=== PATIENT | female | born 1930 | race Caucasian/White ===

== ENCOUNTER 2018-08-10 11:04 | Inpatient (IN) | payer MEDICARE, MEDICAID ==
[~2018-08-10] VITALS: Ht 142.2 cm; Wt 51.7 kg
[2018-08-10] MEDS ORDERED: DIVA125C2 PO (11:36)
[2018-08-10] MEDS ORDERED: BLOO-668 IN (11:36)
[2018-08-10] MEDS ORDERED: DOCU-141 PO (11:36)
[2018-08-10] MEDS ORDERED: MEMA10TA PO (11:36)
[2018-08-10] MEDS ORDERED: DONE10TA11 PO (11:36)
[2018-08-10] MEDS ORDERED: METF-440 PO (11:36)
[2018-08-10] MEDS ORDERED: ACET-868 PO (11:36)
[2018-08-10 12:58] LABS: BASOPHILS # (AUTO) 0.1 /CMM (0.0-0.2); BASOPHILS % (AUTO) 2.2 % (0.0-2.0); EOSINOPHILS % (AUTO) 1.5 % (0.0-6.0); HEMATOCRIT 37 % (33-45); HEMOGLOBIN 12.3 g/dL (11.5-14.8); LYMPHOCYTES % (AUTO) 29.6 % (20.0-44.0); MEAN CORPUSCULAR HGB CONC 34 g/dl (31.0-36.0); MEAN CORPUSCULAR VOLUME 97 fL (82-100); MONOCYTES # (AUTO) 0.6 /CMM (0.1-1.30); MONOCYTES % (AUTO) 8.3 % (2.0-12.0); NEUTROPHILS # (AUTO) 3.9 /CMM (1.8-8.9); NEUTROPHILS % (AUTO) 58.4 % (43.0-81.0); PLATELET COUNT (AUTO) 203 /CMM (150-450); RED BLOOD CELL COUNT(AUTO) 3.77 MIL/uL (4.0-5.2); WHITE BLOOD COUNT (AUTO) 6.7 K/uL (4.3-11.0)
[2018-08-10] MEDS ORDERED: IV NS 0.9% 500 ML BAG IV ONE (13:00)
[2018-08-10 13:27] LABS: APPEARANCE,URINE Clear (CLEAR); BILIRUBIN,URINE Negative (NEGATIVE); BLOOD, URINE Negative Ery/uL (NEGATIVE); KETONES,URINE 15 (NEGATIVE); LEUKOCYTE ESTERASE ,URINE Negative (NEGATIVE); NITRITE, URINE Negative (NEGATIVE); PH,URINE 6.5 (5.0-8.0); PROTEIN,URINE Negative (NEGATIVE); UGLUCOSE Negative (NEGATIVE)
[2018-08-10 13:28] LABS: COLOR,URINE Dark Yellow (YELLOW)
[2018-08-10 13:33] LABS: BACTERIA,URINE None seen /HPF (None Seen); SQUAMOUS EPITHELIAL CELL,UR Few /HPF (None Seen)
[2018-08-10 13:38] LABS: ALANINE AMINOTRANSFERASE 19 U/L (12-78); ALBUMIN 3.6 g/dL (3.4-5.0); ALKALINE PHOSPHATASE 55 U/L (46-116); ASPARTATE AMINOTRANSFERASE 16 U/L (15-37); BILIRUBIN,DIRECT 0.1 mg/dL (0.0-0.2); BILIRUBIN,TOTAL 0.2 mg/dL (0.2-1.0); CALCIUM, SERUM 9.2 mg/dL (8.5-10.1); CARBON DIOXIDE 28 mmol/L (21-32); CHLORIDE 103 mmol/L (98-107); CREATININE 0.7 mg/dL (0.6-1.3); GLUCOSE 132 mg/dL (74-106); POTASSIUM 3.9 mmol/L (3.5-5.1); SODIUM SERUM 140 mmol/L (136-145); TOTAL PROTEIN, SERUM 7.2 g/dL (6.4-8.2); UREA NITROGEN, BLOOD 27 mg/dL (7-18)
[2018-08-10 13:49] LABS: THYROID STIMULATING HORMONE 1.145 uIU/mL (0.358-3.74)
[2018-08-10] MEDS ORDERED: HALOPERIDOL LACTATE INJ 5 MG/ML VIAL IM ONE (14:30)
[2018-08-10] MEDS ORDERED: HALOPERIDOL LACTATE INJ 5 MG/ML VIAL ONE (14:31)
[2018-08-10] MEDS ORDERED: ACETAMINOPHEN 325 MG TABLET PO PRN (15:30)
[2018-08-10] MEDS ORDERED: ONDANSETRON HCL/PF 4 MG/2 ML VIAL IVP PRN (15:30)
[2018-08-10] MEDS ORDERED: MAG HYDROX/AL HYDROX/SIMETH 30 ML UDC PO PRN (15:30)
[2018-08-10] MEDS ORDERED: Z GUARD REMEDY 2 OZ OINT TP PRN (15:30)
[2018-08-10] MEDS ORDERED: HYDROCODONE/APAP 5/325MG 1 EACH TABLET PO PRN (15:30)
[2018-08-10] MEDS ORDERED: MAGNESIUM HYDROXIDE 30 ML UDC PO PRN (15:30)
[2018-08-10 16:20] VITALS: BP 123/69
[2018-08-10 20:00] VITALS: BP 98/58
[2018-08-11] MEDS: LORAZEPAM 1 MG TABLET PO PRN ×3 (04:05→21:06)
[2018-08-11] MEDS: IV NS 0.9% 1,000 ML IV PRN ×2 (06:55→21:05)
[2018-08-11 07:35] LABS: BASOPHILS % (AUTO) 0.5 % (0.0-2.0); EOSINOPHILS % (AUTO) 2.5 % (0.0-6.0); HEMATOCRIT 34 % (33-45); HEMOGLOBIN 11.6 g/dL (11.5-14.8); LYMPHOCYTES # (AUTO) 1.9 /CMM (0.8-4.8); LYMPHOCYTES % (AUTO) 33.7 % (20.0-44.0); MEAN CORPUSCULAR HGB CONC 34 g/dl (31.0-36.0); MEAN CORPUSCULAR VOLUME 97 fL (82-100); MONOCYTES # (AUTO) 0.6 /CMM (0.1-1.30); MONOCYTES % (AUTO) 10.2 % (2.0-12.0); NEUTROPHILS % (AUTO) 53.1 % (43.0-81.0); PLATELET COUNT (AUTO) 196 /CMM (150-450); RED BLOOD CELL COUNT(AUTO) 3.55 MIL/uL (4.0-5.2); WHITE BLOOD COUNT (AUTO) 5.6 K/uL (4.3-11.0)
[2018-08-11 07:52] LABS: CALCIUM, SERUM 8.6 mg/dL (8.5-10.1); CARBON DIOXIDE 27 mmol/L (21-32); CHLORIDE 105 mmol/L (98-107); CREATININE 0.7 mg/dL (0.6-1.3); GLUCOSE 128 mg/dL (74-106); MAGNESIUM 1.9 mg/dL (1.8-2.4); PHOSPHORUS 3.5 mg/dL (2.5-4.9); SODIUM SERUM 141 mmol/L (136-145); UREA NITROGEN, BLOOD 20 mg/dL (7-18)
[2018-08-11 08:00] VITALS: BP 96/81
[2018-08-11] MEDS ORDERED: LORAZEPAM INJ 2 MG/ML VIAL IV ONE (11:30)
[2018-08-11 16:00] VITALS: BP 128/72
[2018-08-11] MEDS: POLYETHYLENE GLYCOL 3350 17 GM POWD.PACK PO SCH ×2 (16:29→21:06)
[2018-08-11] MEDS: DIVALPROEX SODIUM 125 MG CAP.SPRINK PO SCH (16:29)
[2018-08-11] MEDS: METFORMIN 500 MG TABLET PO SCH (16:29)
[2018-08-11] MEDS: MEMANTINE HCL 5 MG TABLET PO SCH (16:29)
[2018-08-11 20:00] VITALS: BP 105/48
[2018-08-11] MEDS: DONEPEZIL 5 MG TABLET PO SCH (21:09)
[2018-08-11] MEDS: DOCUSATE SODIUM 100 MG CAPSULE PO SCH (21:09)
[2018-08-12 06:13] LABS: BASOPHILS # (AUTO) 0.1 /CMM (0.0-0.2); EOSINOPHILS % (AUTO) 3.1 % (0.0-6.0); HEMATOCRIT 34 % (33-45); HEMOGLOBIN 11.6 g/dL (11.5-14.8); LYMPHOCYTES # (AUTO) 1.7 /CMM (0.8-4.8); LYMPHOCYTES % (AUTO) 27.4 % (20.0-44.0); MEAN CORPUSCULAR HGB CONC 34 g/dl (31.0-36.0); MEAN CORPUSCULAR VOLUME 96 fL (82-100); MONOCYTES # (AUTO) 0.5 /CMM (0.1-1.30); MONOCYTES % (AUTO) 8.7 % (2.0-12.0); NEUTROPHILS # (AUTO) 3.7 /CMM (1.8-8.9); NEUTROPHILS % (AUTO) 59.8 % (43.0-81.0); PLATELET COUNT (AUTO) 190 /CMM (150-450); RED BLOOD CELL COUNT(AUTO) 3.58 MIL/uL (4.0-5.2); WHITE BLOOD COUNT (AUTO) 6.1 K/uL (4.3-11.0)
[2018-08-12 06:33] LABS: CALCIUM, SERUM 8.1 mg/dL (8.5-10.1); CARBON DIOXIDE 25 mmol/L (21-32); CHLORIDE 108 mmol/L (98-107); CREATININE 0.6 mg/dL (0.6-1.3); GLUCOSE 128 mg/dL (74-106); POTASSIUM 4.2 mmol/L (3.5-5.1); SODIUM SERUM 141 mmol/L (136-145); UREA NITROGEN, BLOOD 16 mg/dL (7-18)
[2018-08-12] MEDS: BLOOD SUGAR DIAGNOSTIC 1 EACH STRIP IN SCH (06:56)
[2018-08-12 08:08] VITALS: BP 125/76
[2018-08-12] MEDS: MEMANTINE HCL 5 MG TABLET PO SCH ×2 (09:02→16:30)
[2018-08-12] MEDS: DIVALPROEX SODIUM 125 MG CAP.SPRINK PO SCH ×3 (09:02→16:30)
[2018-08-12] MEDS: METFORMIN 500 MG TABLET PO SCH ×2 (09:02→16:31)
[2018-08-12] MEDS: IV NS 0.9% 1,000 ML IV PRN (09:48)
[2018-08-12 16:00] VITALS: BP 137/77
[2018-08-12 20:00] VITALS: BP 120/66
[2018-08-12] MEDS: DONEPEZIL 5 MG TABLET PO SCH (21:20)
[2018-08-12] MEDS: POLYETHYLENE GLYCOL 3350 17 GM POWD.PACK PO SCH (21:20)
[2018-08-12] MEDS: DOCUSATE SODIUM 100 MG CAPSULE PO SCH (21:20)
[2018-08-12] MEDS: LORAZEPAM 1 MG TABLET PO PRN (22:45)
[2018-08-13] MEDS: IV NS 0.9% 1,000 ML IV PRN (06:18)
[2018-08-13] MEDS: BLOOD SUGAR DIAGNOSTIC 1 EACH STRIP IN SCH (07:38)
[2018-08-13 08:00] VITALS: BP 111/53
[2018-08-13] MEDS: METFORMIN 500 MG TABLET PO SCH (09:04)
[2018-08-13] MEDS: DIVALPROEX SODIUM 125 MG CAP.SPRINK PO SCH ×2 (09:04→12:10)
[2018-08-13] MEDS: MEMANTINE HCL 5 MG TABLET PO SCH (09:04)
[2018-09-04] MEDS ORDERED: INSU100V28 IJ (12:33)
[2018-09-04] MEDS ORDERED: LEVO500T2 PO (12:34)
== END 2018-08-13 12:30 | DRG 682 ==
LOC: ER 11:13 → TELE 14:47 → MED 16:01
PROVIDERS: ADMIT Internal Medicine; ATTEND Internal Medicine
DX: N17.0 Acute kidney failure with tubular necrosis (principal); G93.41 Metabolic encephalopathy; R62.7 Adult failure to thrive; F41.9 Anxiety disorder, unspecified; E86.0 Dehydration; E11.9 Type 2 diabetes mellitus without complications; F32.9 Major depressive disorder, single episode, unspecified; F03.90 Unspecified dementia, unspecified severity, without behavioral disturbance, psychotic disturbance, mood disturbance, and anxiety; I10 Essential (primary) hypertension; Z79.84 Long term (current) use of oral hypoglycemic drugs
CPT/HCPCS: 36415; 70450-TC; 71045-TC; 80048-TC; 80076-TC; 81000-TC; 82962-TC; 83735-TC; 84100-TC; 84443-TC; 84484-TC; 85025-TC; 87081-TC; 87086-TC; G0378; J1630; J7030; J7040

== ENCOUNTER 2018-09-02 11:40 | Inpatient (IN) | payer MEDICARE, MEDICAID ==
[~2018-09-02] VITALS: Ht 152.4 cm; Wt 49.2 kg
[~2018-09-02 11:40] MED LIST: ACET-868 PO; BLOO-668 IN; DIVA125C2 PO; DOCU-141 PO; DONE10TA11 PO; MEMA10TA PO; METF-440 PO
[2018-09-02] MEDS ORDERED: NA P133E RC (12:05)
[2018-09-02] MEDS ORDERED: MAGN400O6 PO (12:05)
[2018-09-02] MEDS ORDERED: BISA10SU8 RC (12:05)
--- NOTE | 2018-09-02 12:09 | NUR ---
[facility]IB [facility] FOR HYPERGLYCEMIA BS 530 AT 1030 WAS GIVEN 500 MG METFORMIN. PT HAS BEEN HERE BEFORE AND IS A FLIGHT RISK. SHE HAS A HX OF DEMENTIA AND IS ENGLISH-SPEAKING. SHE IS AOX1, AMB, VSS, RR EVEN AND UNLABORED. SKIN INTACT AND NO ACUTE DISTRESS NOTED. READY FOR EVAL. Addendum: 09/02/18 at 1236 by RAMIRO PT IS FULL CODE
[2018-09-02 12:19] LABS: BASOPHILS # (AUTO) 0.1 /CMM (0.0-0.2); BASOPHILS % (AUTO) 0.8 % (0.0-2.0); EOSINOPHILS % (AUTO) 0.3 % (0.0-6.0); HEMATOCRIT 38 % (33-45); HEMOGLOBIN 12.7 g/dL (11.5-14.8); LYMPHOCYTES # (AUTO) 1.2 /CMM (0.8-4.8); LYMPHOCYTES % (AUTO) 12.7 % (20.0-44.0); MEAN CORPUSCULAR HGB CONC 34 g/dl (31.0-36.0); MEAN CORPUSCULAR VOLUME 97 fL (82-100); MONOCYTES # (AUTO) 0.5 /CMM (0.1-1.30); MONOCYTES % (AUTO) 5.7 % (2.0-12.0); NEUTROPHILS # (AUTO) 7.7 /CMM (1.8-8.9); NEUTROPHILS % (AUTO) 80.5 % (43.0-81.0); PLATELET COUNT (AUTO) 304 /CMM (150-450); WHITE BLOOD COUNT (AUTO) 9.5 K/uL (4.3-11.0)
[2018-09-02] MEDS ORDERED: INSULIN REGULAR, HUMAN 100 UNIT/ML 10 ML VIAL ONE (12:23)
[2018-09-02] MEDS ORDERED: IV NS 0.9% 1,000 ML BAG IV ONE (12:30)
[2018-09-02] MEDS ORDERED: INSULIN REGULAR, HUMAN 100 UNIT/ML 10 ML VIAL SQ ONE (12:30)
[2018-09-02 12:46] LABS: ALANINE AMINOTRANSFERASE 20 U/L (12-78); ALBUMIN 3.3 g/dL (3.4-5.0); ALKALINE PHOSPHATASE 78 U/L (46-116); ASPARTATE AMINOTRANSFERASE 13 U/L (15-37); BILIRUBIN,DIRECT 0.1 mg/dL (0.0-0.2); BILIRUBIN,TOTAL 0.2 mg/dL (0.2-1.0); CALCIUM, SERUM 9.6 mg/dL (8.5-10.1); CARBON DIOXIDE 29 mmol/L (21-32); CHLORIDE 109 mmol/L (98-107); LIPASE 116 U/L (73-393); POTASSIUM 4.4 mmol/L (3.5-5.1); SODIUM SERUM 145 mmol/L (136-145); TOTAL PROTEIN, SERUM 7.7 g/dL (6.4-8.2); UREA NITROGEN, BLOOD 39 mg/dL (7-18)
[2018-09-02 12:58] LABS: GLUCOSE 555 mg/dL (74-106)
--- NOTE | 2018-09-02 13:10 | NUR ---
PT REMOVED IV. NEW IV PLACED. MD ADAME
--- NOTE | 2018-09-02 13:35 | NUR ---
URINE COLLECTED VIA STRAIGHT CATH AND SENT TO STAT LAB. PT MATT WELL
[2018-09-02 13:44] LABS: APPEARANCE,URINE SL CLOUDY (CLEAR); BILIRUBIN,URINE NEGATIVE (NEGATIVE); BLOOD, URINE 1+ Ery/uL (NEGATIVE); COLOR,URINE YELLOW (YELLOW); KETONES,URINE TRACE (NEGATIVE); NITRITE, URINE POSITIVE (NEGATIVE); PROTEIN,URINE NEGATIVE (NEGATIVE); UGLUCOSE 2+ mg/dL (NEGATIVE); UROBILINOGEN,URINE 0.2 EU/dL (0.2)
[2018-09-02 13:48] LABS: CLINITEST,URINE ND
[2018-09-02 13:49] LABS: LEUKOCYTE ESTERASE ,URINE 2+ (NEGATIVE)
[2018-09-02 13:50] LABS: BACTERIA,URINE Moderate /HPF (None Seen); SQUAMOUS EPITHELIAL CELL,UR Few /HPF (None Seen); WBC,URINE 51-80 /HPF (0-3)
--- NOTE | 2018-09-02 14:09 | NUR ---
Patient is resting comfortably in bed with eyes closed. Easily aroused. VSS
--- NOTE | 2018-09-02 14:42 | NUR ---
PAGED [facility] FOR PANEL - ON MAYTE SUPERVISOR [employer] XIN INTERIANO
[2018-09-02] MEDS ORDERED: CEFTRIAXONE 1 G in IV D5W 50 ML IV ONE (15:00)
[2018-09-02] MEDS ORDERED: CEFTRIAXONE 1GM BAG (ER ONLY) 50 ML IV ONE (15:01)
--- NOTE | 2018-09-02 15:03 | NUR ---
CALLED NURSE BELINDA FOR MED.SURG BED
--- NOTE | 2018-09-02 15:38 | NUR ---
RESTRAINT CHECK, CMS INTACT. PT CONTINUES TO TRY TO PULL AT CABLES
--- NOTE | 2018-09-02 15:39 | NUR ---
Patient is resting comfortably in bed with eyes closed. Easily aroused. VSS
[2018-09-02] MEDS ORDERED: ONDANSETRON HCL/PF 4 MG/2 ML VIAL IVP PRN (16:00)
[2018-09-02] MEDS ORDERED: MAG HYDROX/AL HYDROX/SIMETH 30 ML UDC PO PRN (16:00)
[2018-09-02] MEDS ORDERED: Z GUARD REMEDY 2 OZ OINT TP PRN (16:00)
[2018-09-02] MEDS ORDERED: ZOLPIDEM TARTRATE 5 MG TABLET PO PRN (16:00)
[2018-09-02] MEDS ORDERED: HYDROMORPHONE 1 MG/1 ML DISP.SYRIN IV PRN (16:00)
[2018-09-02] MEDS ORDERED: BISACODYL SUPP (10 MG) 10 MG/SUPP.RECT SUPP.RECT RC PRN (16:00)
[2018-09-02] MEDS ORDERED: ACETAMINOPHEN 325 MG TABLET PO PRN (16:00)
[2018-09-02] MEDS ORDERED: MAGNESIUM HYDROXIDE 30 ML UDC PO PRN ×2 (16:00)
[2018-09-02] MEDS ORDERED: HYDROCODONE/APAP 5/325MG 1 EACH TABLET PO PRN (16:00)
[2018-09-02] MEDS ORDERED: DEXTROSE 50%-WATER 50 ML DISP.SYRIN IV PRN (16:00)
[2018-09-02] MEDS ORDERED: *INSULIN REGULAR(HUMULIN R)HUM 100 UNIT/ML VIAL SQ PRN (16:00)
[2018-09-02] MEDS ORDERED: NA PHOS,M-B/NA PHOS,DI-BA 1 EA ENEMA RC PRN (16:00)
--- NOTE | 2018-09-02 16:15 | NUR ---
REPORT GIVEN TO DAWNA BOSTON FOR 207-2 M/S
--- NOTE | 2018-09-02 16:37 | NUR ---
[facility]
--- NOTE | 2018-09-02 16:45 | NUR ---
MS/CONTAINER FINISHING INSPECTOR PATIENT ADMITTED FROM ER, TRANSFERRED VIA GURNEY IN STABLE CONDITION. A/O X 1, CONFUSED, [place] SPEAKING ONLY. NO SIGNS OF ACUTE DISTRESS. NO COMPLAIN OF PAIN OR DISCOMFORT. ADMITTING DIAGNOSIS IS HYPERGLYCEMIA AND UTI. SKIN ASSESSMENT DONE. NO OPEN WOUNDS NOTED, SKIN NOTED INTACT AT THIS TIME. INCONTINENT OF BOWEL AND BLADDER. AMBULATE WITH ASSIST. ALL NEEDS ATTENDED TO. CALL LIGHT WITHIN REACH. WILL CONTINUE TO MONITOR TO ENSURE SAFETY.
[2018-09-02 17:00] VITALS: BP 155/82
[2018-09-02 17:15] VITALS: BP 155/82
[2018-09-02] MEDS: DIVALPROEX SODIUM 125 MG CAP.SPRINK PO SCH (18:02)
[2018-09-02] MEDS: MEMANTINE HCL 5 MG TABLET PO SCH (18:02)
[2018-09-02] MEDS: ENOXAPARIN SODIUM 30 MG/0.3 ML DISP.SYRIN SQ SCH (18:03)
[2018-09-02] MEDS: BLOOD SUGAR DIAGNOSTIC 1 EACH STRIP VI SCH ×2 (18:03→21:12)
[2018-09-02] MEDS: INSULIN REGULAR, HUMAN 100 UNIT/ML 3 ML VIAL SQ PRN (18:08)
[2018-09-02] MEDS: IV NS 0.9% 1,000 ML IV PRN (18:17)
--- NOTE | 2018-09-02 18:42 | NUR ---
MS/RN CLOSING NOTE PATIENT IN BED IN STABLE CONDITION. A/O X 1, CONFUSED, [place] SPEAKING. TRYING TO GET OUT OF BED UNASSISTED. NO SIGNS OF ACUTE DISTRESS. NO COMPLAIN OF PAIN OR DISCOMFORT. ALL NEEDS ATTENDED TO. CALL LIGHT WITHIN REACH. WILL ENDORSE TO NEXT SHIFT FOR CONTINUITY OF CARE.
--- NOTE | 2018-09-02 19:37 | NUR ---
RN NOTES RECEIVE PT IN THE BED A/O X 1, 1:1 SITTER AT BEDSIDE. IN STABLE CONDITION, NOT IN DISTRESS, SAFETY MEASURES IN PLACE. WILL CONTINUE TO MONITOR.
[2018-09-02 20:00] VITALS: BP 111/59
[2018-09-02] MEDS: DOCUSATE SODIUM 100 MG CAPSULE PO SCH (21:07)
[2018-09-02] MEDS: DONEPEZIL 5 MG TABLET PO SCH (21:08)
[2018-09-03] MEDS: BLOOD SUGAR DIAGNOSTIC 1 EACH STRIP VI SCH ×4 (05:47→21:30)
--- NOTE | 2018-09-03 06:17 | NUR ---
RN CLOSING NOTE ASLEEP AND EASILY AWAKEN A/O X 1. 1:1 SITTER AT BEDSIDE, STABLE CONDITION, NOT IN DISTRESS. 02 SAT AT 97% R.A RESPIRATIONS EVEN AND UNLABORED. NURSING CARE RENDERED, NO COMPLAIN OF PAIN AT THIS TIME. KEPT CLEAN AND DRY AND COMFORT, ASSISTED REPOSITION EVERY 2 HOURS AND PRN. SAFETY MEASURES IN PLACE, CALL LIGHT WITHIN REACH. WILL ENDORSE TO CALLISTHENICS INSTRUCTOR FOR ROGELIO.
[2018-09-03] MEDS: INSULIN REGULAR, HUMAN 100 UNIT/ML 3 ML VIAL SQ PRN ×3 (06:33→17:53)
[2018-09-03 07:54] LABS: BASOPHILS # (AUTO) 0.1 /CMM (0.0-0.2); BASOPHILS % (AUTO) 0.9 % (0.0-2.0); EOSINOPHILS % (AUTO) 0.8 % (0.0-6.0); HEMATOCRIT 37 % (33-45); HEMOGLOBIN 12.4 g/dL (11.5-14.8); LYMPHOCYTES % (AUTO) 21.7 % (20.0-44.0); MEAN CORPUSCULAR HGB CONC 33 g/dl (31.0-36.0); MEAN CORPUSCULAR VOLUME 96 fL (82-100); MONOCYTES # (AUTO) 0.7 /CMM (0.1-1.30); MONOCYTES % (AUTO) 7.3 % (2.0-12.0); NEUTROPHILS # (AUTO) 6.3 /CMM (1.8-8.9); NEUTROPHILS % (AUTO) 69.3 % (43.0-81.0); PLATELET COUNT (AUTO) 326 /CMM (150-450); RED BLOOD CELL COUNT(AUTO) 3.86 MIL/uL (4.0-5.2); WHITE BLOOD COUNT (AUTO) 9.1 K/uL (4.3-11.0)
--- NOTE | 2018-09-03 08:10 | NUR ---
MS RN OPENING NOTE RECEIVED PATIENT RESTING COMFORTABLY IN BED AT THIS TIME. ALERT AND ORIENTED x1 FORGETFUL BUT NEEDS ORIENTATION TO UNIT. SITTER AT BEDSIDE FOR SAFETY. IV INTACT AND PATENT NO REDNESS OR SWELLING NOTED WITH IV FLUIDS RUNNING AT THIS TIME. CALL LIGHT WITHIN REACH. SAFETY MEASURES IMPLEMENTED. BLOOD SUGARS TO BE MONITORED THROUGHOUT SHIFT. NO PAIN NOTED AT THIS TIME AND NO FACIAL GRIMACING NOTED. NO SOB OR DISTRESS NOTED ON ROOM AIR TOLERATING WELL. WILL CONTINUE TO MONITOR THROUGHOUT SHIFT
[2018-09-03 08:12] LABS: CHOLESTEROL 227 mg/dL (<200); HDL CHOLESTEROL 67 mg/dL (40-60); LDL 138 mg/dL (0-99); TRIGLYCERIDES 112 mg/dL (30-150)
[2018-09-03 08:17] LABS: ALANINE AMINOTRANSFERASE 22 U/L (12-78); ALBUMIN 3.1 g/dL (3.4-5.0); ALKALINE PHOSPHATASE 60 U/L (46-116); ASPARTATE AMINOTRANSFERASE 20 U/L (15-37); BILIRUBIN,TOTAL 0.3 mg/dL (0.2-1.0); CALCIUM, SERUM 9.1 mg/dL (8.5-10.1); CARBON DIOXIDE 26 mmol/L (21-32); CHLORIDE 114 mmol/L (98-107); CREATININE 0.8 mg/dL (0.6-1.3); GLUCOSE 165 mg/dL (74-106); PHOSPHORUS 2.7 mg/dL (2.5-4.9); POTASSIUM 3.4 mmol/L (3.5-5.1); SODIUM SERUM 151 mmol/L (136-145); UREA NITROGEN, BLOOD 32 mg/dL (7-18)
[2018-09-03] MEDS: PANTOPRAZOLE 40 MG VIAL IV SCH (09:23)
[2018-09-03] MEDS: MEMANTINE HCL 5 MG TABLET PO SCH ×2 (09:23→16:29)
[2018-09-03] MEDS: DIVALPROEX SODIUM 125 MG CAP.SPRINK PO SCH ×3 (09:23→16:29)
[2018-09-03] MEDS: IV NS 0.9% 1,000 ML IV PRN (10:35)
[2018-09-03] MEDS ORDERED: POTASSIUM CHLORIDE 20 MEQ TAB.PRT.SR PO SCH (11:00)
--- NOTE | 2018-09-03 12:02 | NUR ---
MS TONEY NOTE BS-358 INSULIN TO BE GIVEN ONCE FOOD AT BEDSIDE Addendum: 09/03/18 at 1236 by DINA MASON RN 15 UNITS OF INSULIN GIVEN. PATIENT EATING LUNCH WITH ASSISTANCE AT THIS TIME
[2018-09-03] MEDS: ACETAMINOPHEN 325 MG TABLET PO PRN ×2 (12:29→20:23)
[2018-09-03] MEDS ORDERED: IV NS 0.45% 500 ML IV ONE (12:30)
[2018-09-03] MEDS ORDERED: POTASSIUM CHLORIDE 20 MEQ TAB.PRT.SR PO ONE (12:30)
--- NOTE | 2018-09-03 12:39 | NUR ---
MS RN NOTE K-DUR 20 MEQ PO x1 REPLACEMENT GIVEN FOR POTASSIUM LEVEL-3.4
[2018-09-03 16:00] VITALS: BP 124/68
[2018-09-03] MEDS ORDERED: CEFTRIAXONE 1 G in IV D5W 50 ML IV SCH (16:00)
[2018-09-03] MEDS ORDERED: IV 1/2NS 1000 ML 1,000 ML IV ONE (16:00)
--- NOTE | 2018-09-03 16:31 | NUR ---
MS TONEY NOTE BS-170 INSULIN TO BE GIVEN WHEN FOOD AT BEDSIDE Addendum: 09/03/18 at 1755 by DINA MASON RN 3 UNITS OF INSULIN GIVEN AND PATIENT EATING AT BEDSIDE AT THIS TIME
--- NOTE | 2018-09-03 18:35 | NUR ---
MS RN CLOSING NOTE PATIENT RESTING COMFORTABLY AT THIS TIME. BLOOD SUGAR MONITORED AND INSULIN GIVEN NEEDED. IV INTACT AND PATENT ON RIGHT FOREARM WITH IV FLUIDS RUNNING AT THIS TIME. ALL DUE MEDICATIONS GIVEN ORDERED. ALL NEEDS MET. ALERT AND ORIENTED x1. SITTER AT BEDSIDE FOR SAFETY. LABS IN AM. CALL LIGHT WITHIN REACH AT ALL TIMES. NO FACIAL GRIMACING NOTED FOR PAIN. NO SOB OR DISTRESS NOTED ON ROOM AIR. WILL ENDORSE TO AVIATION SAFETY INSPECTOR NURSE FOR ROGELIO
--- NOTE | 2018-09-03 19:30 | NUR ---
RECEIVED PATIENT IN BED AWAKE, AO X 1, UNCLEAR SPEECH. NO ACUTE DISTRESS NOTED. NO SIGNS OF PAIN NOTED. IV SITE PATENT, INTACT; IVF INFUSING ORDERED. SAFETY REMINDERS GIVEN. ON LOW BED WITH BILATERAL UPPER SIDE RAILS UP. CALL [place] WITHIN EASY REACH. WILL CONTINUE TO MONITOR. SITTER AT BEDSIDE.
[2018-09-03 20:00] VITALS: BP 107/70
[2018-09-03] MEDS: ENOXAPARIN SODIUM 30 MG/0.3 ML DISP.SYRIN SQ SCH (20:22)
[2018-09-03] MEDS: DONEPEZIL 5 MG TABLET PO SCH (21:29)
[2018-09-03] MEDS: DOCUSATE SODIUM 100 MG CAPSULE PO SCH (21:29)
[2018-09-04] MEDS: ACETAMINOPHEN 325 MG TABLET PO PRN (04:05)
[2018-09-04 06:30] LABS: BASOPHILS # (AUTO) 0.1 /CMM (0.0-0.2); BASOPHILS % (AUTO) 0.8 % (0.0-2.0); HEMATOCRIT 35 % (33-45); HEMOGLOBIN 11.7 g/dL (11.5-14.8); LYMPHOCYTES # (AUTO) 2.5 /CMM (0.8-4.8); MEAN CORPUSCULAR HGB CONC 34 g/dl (31.0-36.0); MEAN CORPUSCULAR VOLUME 96 fL (82-100); MONOCYTES # (AUTO) 0.5 /CMM (0.1-1.30); MONOCYTES % (AUTO) 5.7 % (2.0-12.0); NEUTROPHILS # (AUTO) 4.9 /CMM (1.8-8.9); NEUTROPHILS % (AUTO) 60.5 % (43.0-81.0); PLATELET COUNT (AUTO) 283 /CMM (150-450); RED BLOOD CELL COUNT(AUTO) 3.63 MIL/uL (4.0-5.2); WHITE BLOOD COUNT (AUTO) 8.1 K/uL (4.3-11.0)
--- NOTE | 2018-09-04 06:30 | NUR ---
PATIENT ASLEEP; RESPIRATIONS EVEN. NO SIGNS OF PAIN NOTED. NO SYMPTOMS OF HYPER/HYPOGLYCEMIA. DUE MEDS GIVEN WITH NO ASE NOTED. NEEDS ATTENDED. SAFETY PRECAUTIONS AND COMFORT MEASURES IN PLACE. WILL GIVE REPORT TO DAY SHIFT FOR CONTINUITY OF CARE.
[2018-09-04] MEDS: BLOOD SUGAR DIAGNOSTIC 1 EACH STRIP VI SCH ×3 (06:36→16:32)
[2018-09-04] MEDS: INSULIN REGULAR, HUMAN 100 UNIT/ML 3 ML VIAL SQ PRN ×3 (06:40→17:40)
[2018-09-04 06:43] LABS: CALCIUM, SERUM 8.4 mg/dL (8.5-10.1); CARBON DIOXIDE 26 mmol/L (21-32); CHLORIDE 113 mmol/L (98-107); CREATININE 0.8 mg/dL (0.6-1.3); GLUCOSE 160 mg/dL (74-106); POTASSIUM 3.6 mmol/L (3.5-5.1); SODIUM SERUM 148 mmol/L (136-145); UREA NITROGEN, BLOOD 29 mg/dL (7-18)
--- NOTE | 2018-09-04 07:40 | NUR ---
MS RN OPENING NOTE RECEIVED PATIENT ASLEEP IN BED AT THIS TIME WITH BED LOCKED IN LOWEST POSITION WITH SITTER AT BEDSIDE FOR SAFETY. IV INTACT AND PATENT NO REDNESS OR SWELLING NOTED. CALL LIGHT WITHIN REACH. SAFETY MEASURES IMPLEMENTED. NO FACIAL GRIMACING NOTED FOR PAIN. NO SOB OR DISTRESS NOTED ON ROOM AIR TOLERATING WELL. BLOOD SUGAR CHECKS THROUGHOUT SHIFT. WILL CONTINUE TO MONITOR
[2018-09-04 08:00] VITALS: BP 122/77
[2018-09-04] MEDS: PANTOPRAZOLE 40 MG VIAL IV SCH (09:19)
[2018-09-04] MEDS: DIVALPROEX SODIUM 125 MG CAP.SPRINK PO SCH ×3 (09:19→16:31)
[2018-09-04] MEDS: MEMANTINE HCL 5 MG TABLET PO SCH ×2 (09:19→16:31)
--- NOTE | 2018-09-04 10:00 | NUR ---
MS RN NOTE PATIENT WAS BECOMING AGGRESSIVE WITH SITTER, MYSELF AND OTHER RN. ATTEMPTED TO CALM PATIENT DOWN, BUT PATIENT BECAME EVEN MORE AGITATED. BEGAN TO SMACK STAFF AND ATTEMPTING TO PULL ON IV LINES, YELLING AND SCREAMING. DESPITE OFFERING CALMING ALTERNATIVES INFORMED MD FOR AGITATION. RECEIVED ORDER FOR SOFT RESTRAINT-MITTENS. ORDER NOTED AND CARRIED OUT.
--- NOTE | 2018-09-04 11:40 | NUR ---
MS TONEY NOTE BS-232 INSULIN TO BE GIVEN ONCE FOOD AT BEDSIDE Addendum: 09/04/18 at 1222 by DINA MASON RN 6 UNITS OF INSULIN GIVEN WITH FOOD AT THE BEDSIDE AT THIS TIME. SITTER FEEDING PATIENT
[2018-09-04] MEDS ORDERED: ZOSYN IVPB 3.375 G in IV D5W 50ml IV ONE (12:00)
[2018-09-04] MEDS ORDERED: INSU100V28 IJ (12:33)
[2018-09-04] MEDS ORDERED: LEVO500T2 PO (12:34)
[2018-09-04] MEDS ORDERED: LEVOFLOXACIN 500 MG /D5W 100ML 500 MG in PREMIX 1 EA IV ONE ×2 (14:00→21:00)
[2018-09-04] MEDS ORDERED: LEVOFLOXACIN 250 MG /D5W 50 ML 250 MG in PREMIX 1 EA IV SCH (14:00)
--- NOTE | 2018-09-04 15:43 | NUR ---
MS RN NOTE PATIENT REFUSING IV MEDICATION AND IV FLUIDS AT THIS TIME. BECOMING AGGRESSIVE AND COMBATIVE.
[2018-09-04 16:00] VITALS: BP 120/82
--- NOTE | 2018-09-04 17:22 | NUR ---
MS RN NOTE BS-147 INSULIN TO BE GIVEN AND FOOD AT BEDSIDE.
--- NOTE | 2018-09-04 17:51 | NUR ---
MS RN NOTE 2 UNITS OF INSULIN GIVEN
--- NOTE | 2018-09-04 18:07 | NUR ---
INVENTORY REPRESENTATIVE NOTE REPORT GIVEN TO DAWNA SYED RECEIVING ASSOCIATE STORE AT [facility]. PATIENT SENT VIA AMBULANCE IN STABLE CONDITION. ALL NEEDS MET. ALL DUE MEDICATIONS GIVEN ORDERED. BLOOD SUGARS CHECKED AND INSULIN GIVEN NEEDED. ALL DISCHARGE INSTRUCTIONS GIVEN TO RN RECEIVING ASSOCIATE STORE, TEACH BACK RECEIVED FROM RN. ALERT AND ORIENTED x1, CONFUSED. FAMILY AWARE OF DISCHARGE. ALL BELONGINGS WITH PATIENT UPON DISCHARGE. IV REMOVED, SKIN INTACT. NO FACIAL GRIMACING NOTED. NO SOB OR DISTRESS NOTED ON ROOM AIR.
[2018-09-04] MEDS ORDERED: PIPERACILLIN /TAZOBACTAM 3.375 G in IV D5W 100 ML IV SCH (20:00)
[2018-09-05] MEDS ORDERED: LEVOFLOXACIN 250 MG /D5W 50 ML 250 MG in PREMIX 1 EA IV SCH ×2 (14:00→21:00)
== END 2018-09-04 18:11 | DRG 689 ==
LOC: ER 11:41 → MEDSG2 15:29 → MED 18:41 → MEDSG2 18:43
PROVIDERS: ADMIT Nurse Practitioner Acute Care; ATTEND Nurse Practitioner Acute Care
DX: N30.00 Acute cystitis without hematuria (principal); G93.41 Metabolic encephalopathy; D68.59 Other primary thrombophilia; E87.0 Hyperosmolality and hypernatremia; R64 Cachexia; E86.0 Dehydration; E78.5 Hyperlipidemia, unspecified; F03.90 Unspecified dementia, unspecified severity, without behavioral disturbance, psychotic disturbance, mood disturbance, and anxiety; F32.9 Major depressive disorder, single episode, unspecified; F41.9 Anxiety disorder, unspecified; M62.84 Sarcopenia; Z79.84 Long term (current) use of oral hypoglycemic drugs; E11.65 Type 2 diabetes mellitus with hyperglycemia; E88.09 Other disorders of plasma-protein metabolism, not elsewhere classified; B96.20 Unspecified Escherichia coli [E. coli] as the cause of diseases classified elsewhere; Z68.21 Body mass index [BMI] 21.0-21.9, adult
CPT/HCPCS: 36415; 71045-TC; 80048-TC; 80053-TC; 80061-TC; 80076-TC; 81000-TC; 82010-TC; 82962-TC; 83605-TC; 83690-TC; 83735-TC; 84100-TC; 84484-TC; 85025-TC; 87081-TC; 87086-TC; 87186-TC; A4216; C9113; G0378; J0696; J1650; J1815; J1956; J2543; J3490; J7030; J7060

== ENCOUNTER 2021-12-19 15:46 | Emergency (ER) | payer MEDICARE, OTHER ==
[~2021-12-19] VITALS: Ht 160 cm; Wt 64.4 kg
[~2021-12-19 15:46] MED LIST changes: +ASCO500C17 PO; +ATOR20TA PO; +BISA10SU11 RC; -BLOO-668 IN; +INSU100V3 IJ; +INSU100V7 SQ; +MAGN400O6 PO; +NA P133E RC; +ZINC1CAP3 PO
--- NOTE | 2021-12-19 15:51 | NUR ---
TO ER BED 11[facility]DA FROM [facility] FOR G TUBE REPLACEMENT PER RN IT WAS ACCIDENTALLY PULLED AROUND 11AM TODAY, AAOX1, BREATHING EVEN AND NON LABORED, CONNECTED TO MONITOR, AWAITING MD BARRY
--- NOTE | 2021-12-19 16:00 | NUR ---
G TUBE REPLACED BY . FR 20
--- NOTE | 2021-12-19 16:09 | NUR ---
[facility] CALLED FOR TRANSPORT ETA 15 MINS.
[2021-12-19] MEDS ORDERED: DIATR MEGLU/DIATRIZOATE SODIUM 30 ML BOTTLE (GASTROGRAPHIN) ONE (16:13)
--- NOTE | 2021-12-19 16:20 | NUR ---
STOKER MECHANIC AT BEDSIDE FOR KUB XRAY.
--- NOTE | 2021-12-19 16:24 | NUR ---
Patient discharged to home via private ambulance in stable condition. Written and verbal after care instructions given. Patient verbalizes understanding of instruction.
[2021-12-19 16:29] VITALS: BP 111/62
== END 2021-12-19 16:29 ==
LOC: ER 15:54
DX: K94.23 Gastrostomy malfunction (principal); I10 Essential (primary) hypertension; E11.9 Type 2 diabetes mellitus without complications; Z86.69 Personal history of other diseases of the nervous system and sense organs; Z87.39 Personal history of other diseases of the musculoskeletal system and connective tissue; Z79.899 Other long term (current) drug therapy
CPT/HCPCS: 43762; 74018; 99284; Q9963

== ENCOUNTER 2021-12-20 18:10 | Emergency (ER) | payer MEDICARE, OTHER ==
[~2021-12-20] VITALS: Ht 167.6 cm; Wt 61.7 kg
--- NOTE | 2021-12-20 18:25 | NUR ---
LINDA FROM [facility] ED FOR GTUBE REPLACEMENT. PLACED ON BED, NOT RESPONDING TO BERVAL STIMULI, BED RIDDEN.
--- NOTE | 2021-12-20 19:26 | NUR ---
G-TUBE REPLACEMENT FR20 DONE BY DR MCGINNIS
[2021-12-20] MEDS ORDERED: DIATR MEGLU/DIATRIZOATE SODIUM 30 ML BOTTLE (GASTROGRAPHIN) ONE (19:31)
--- NOTE | 2021-12-20 19:35 | NUR ---
XRAY AT BEDSIDE
--- NOTE | 2021-12-20 20:38 | NUR ---
[facility] CALLED FOR S TRANSPORT. ETA [id number]
--- NOTE | 2021-12-20 21:09 | NUR ---
REPORT GIV[facility] TO [facility]
[2021-12-20 21:38] VITALS: BP 118/70
--- NOTE | 2021-12-20 21:38 | NUR ---
[facility] ambulance at bedside for transportation.
== END 2021-12-20 21:39 ==
LOC: ER 18:14
DX: K94.23 Gastrostomy malfunction (principal); F03.90 Unspecified dementia, unspecified severity, without behavioral disturbance, psychotic disturbance, mood disturbance, and anxiety; I10 Essential (primary) hypertension; E11.9 Type 2 diabetes mellitus without complications; Z79.4 Long term (current) use of insulin; Z79.899 Other long term (current) drug therapy; Z79.84 Long term (current) use of oral hypoglycemic drugs
CPT/HCPCS: 43762; 74018; 99284; Q9963

== ENCOUNTER 2022-02-22 08:42 | Emergency (ER) | payer MEDICARE, OTHER ==
[~2022-02-22] VITALS: Ht 142.2 cm; Wt 53.5 kg
--- NOTE | 2022-02-22 08:44 | NUR ---
LINDA MALIK [id number] [facility], PULLED OUT G-TUBE 20F. PLACED MCMILLAN CATHETER IN THE STOMA. TO ER BED 11, HOOKED TO MONITOR, VSS. CHANGED TO HOSP GOWN, WARM BLANKET PROVIDED. DR DONG AT BEDSIDE
[2022-02-22] MEDS ORDERED: DIATR MEGLU/DIATRIZOATE SODIUM 30 ML BOTTLE (GASTROGRAPHIN) ONE (09:04)
--- NOTE | 2022-02-22 09:09 | NUR ---
X RAY AT BEDSIDE
--- NOTE | 2022-02-22 09:38 | NUR ---
Patient discharged in stable condition. [facility] will bring patient back to [facility].
[2022-02-22 09:39] VITALS: BP 126/74
== END 2022-02-22 09:40 ==
LOC: ER 08:46
DX: K94.23 Gastrostomy malfunction (principal); F03.90 Unspecified dementia, unspecified severity, without behavioral disturbance, psychotic disturbance, mood disturbance, and anxiety; I10 Essential (primary) hypertension; E11.9 Type 2 diabetes mellitus without complications; M19.90 Unspecified osteoarthritis, unspecified site; Z79.899 Other long term (current) drug therapy; Z79.4 Long term (current) use of insulin; Z79.84 Long term (current) use of oral hypoglycemic drugs
CPT/HCPCS: 99284; 43762; 74018; Q9963